=== PATIENT | female | born 1990 | race Caucasian/White ===

== ENCOUNTER 2016-03-10 16:16 | Emergency (ER) | payer MEDICAID ==
[~2016-03-10] VITALS: Ht 157.5 cm; Wt 52.2 kg
[~2016-03-10 16:16] MED LIST: ALPR0.5T7
[2016-03-10 16:59] LABS: Basophils # (auto) 0.1 uL; Basophils % (auto) 0.9 % (0.0-2.0); Eosinophils # (auto) 0.2 uL; Hematocrit 42.8 % (36.0-46.0); Lymphocytes # (auto) 1.5 uL; Lymphocytes % (auto) 20.3 % (10.0-50.0); Mean Corpuscular Hemoglobin 32.9 pg (28.0-32.0); Mean Corpuscular Hgb Conc. 32.7 g/dL (32.0-36.0); Mean Corpuscular Volume 100.6 fL (80.0-100.0); Mean Platelet Volume 8.5 fL (7.4-10.4); Monocytes # (auto) 0.7 uL; Monocytes % (auto) 9.1 % (0.0-12.0); Neutrophils # (auto) 5.1 uL; Neutrophils % (auto) 67.7 % (37.0-80.0); Platelet Count (auto) 338 10^3/uL (140-450); Red Cell Distribution Width 12.9 % (11.6-16.0); White Blood Cell 7.6 10^3/uL (4.4-10.8)
[2016-03-10 17:40] LABS: Albumin 3.9 g/dL (3.4-5.0); BUN/Creatinine Ratio 29.4; Bilirubin, Total 0.3 mg/dL (0.2-1.0); Calcium 9.4 mg/dL (8.5-10.1); Potassium 3.9 mmol/L (3.5-5.1); Total Protein 7.5 g/dL (6.4-8.2)
[2016-03-10 17:45] LABS: Urine Color Brown (Yellow); Urine Glucose Normal (Normal); Urine Ketone Negative (Negative); Urine Mucus FEW (None Seen); Urine RBC 3 /hpf (0 - 4); Urine Squamous Epithelial Cell MANY /hpf (<5)
[2016-03-10] MEDS ORDERED: SODIUM CHLORIDE 0.9% 1,000 ML IVB ONE (18:00)
[2016-03-10] MEDS ORDERED: PROMETHAZINE HCL 25 MG/ML 1ML IV ONE (18:00)
[2016-03-10 18:09] LABS: Urine Bilirubin 1+ (Negative); Urine Blood 2+ /uL (Negative); Urine Nitrite POSITIVE (Negative)
[2016-03-10 23:12] VITALS: BP 98/60
== END 2016-03-10 22:46 | disposition home or self-care (01) ==
LOC: ER 16:21
DX: O21.8 Other vomiting complicating pregnancy (principal); O23.31 Infections of other parts of urinary tract in pregnancy, first trimester; O99.331 Smoking (tobacco) complicating pregnancy, first trimester; F12.10 Cannabis abuse, uncomplicated; Z3A.01 Less than 8 weeks gestation of pregnancy
CPT/HCPCS: 36415; 76801; 80053; 81001; 84702; 85025; 94761; 96374; 99285; J2550; J7030

== ENCOUNTER 2016-06-29 17:27 | Observation (INO) | payer MEDICAID ==
[2016-06-29 18:39] LABS: Urine Bilirubin Negative (Negative); Urine Blood Negative /uL (Negative); Urine Color Yellow (Yellow); Urine Glucose Normal (Normal); Urine Ketone Negative (Negative); Urine Mucus FEW (None Seen); Urine Nitrite Negative (Negative); Urine RBC 1 /hpf (0 - 4); Urine Squamous Epithelial Cell MOD /hpf (<5); Urine Urobilinogen Normal (Negative); Urine pH 6.5 (5.0-8.0)
== END 2016-06-29 18:52 | disposition home or self-care (01) | DRG 566 ==
LOC: LDRP 17:27
PROVIDERS: ADMIT Obstetrics & Gynecology; ATTEND Obstetrics & Gynecology
DX: O36.8120 Decreased fetal movements, second trimester, not applicable or unspecified (principal); Z3A.22 22 weeks gestation of pregnancy
CPT/HCPCS: 59025; 80307; 81001; G0378

== ENCOUNTER 2018-07-30 06:02 | Emergency (ER) | payer SELFPAY ==
[~2018-07-30] VITALS: Ht 160 cm; Wt 59.0 kg
[2018-07-30 06:13] VITALS: BP 139/98
[2018-07-30 07:10] LABS: Urine Bacteria MANY /hpf (None Seen); Urine Blood Negative /uL (Negative); Urine Mucus FEW (None Seen); Urine Specific Gravity 1.029 (1.001-1.035); Urine WBC 4 /hpf (0 - 5)
[2018-07-30] MEDS ORDERED: IBUPROFEN 800 MG TAB PO ONE (08:30)
[2018-07-30 09:01] LABS: Alcohol, Urine < 3.0 mg/dL (0-5); Amphetamine Screen, Urine POSITIVE (NEGATIVE); Barbiturate Scree,Urine NEGATIVE (NEGATIVE); Benzodiazephine Screen, Urine NEGATIVE (NEGATIVE); Cannabinoid Screen, Urine NEGATIVE (NEGATIVE); Cocaine Screen, Urine NEGATIVE (NEGATIVE); Opiate Scree,Urine NEGATIVE (NEGATIVE); Phencyclidine Screen, Urine NEGATIVE (NEGATIVE)
== END 2018-07-30 08:32 | disposition home or self-care (01) ==
LOC: ER 06:02
DX: N39.0 Urinary tract infection, site not specified (principal); F17.210 Nicotine dependence, cigarettes, uncomplicated; F12.10 Cannabis abuse, uncomplicated; F15.10 Other stimulant abuse, uncomplicated
CPT/HCPCS: 80307; 81001; 87086

== ENCOUNTER 2022-04-04 20:05 | Emergency (ER) | payer MEDICAID ==
[~2022-04-04] VITALS: Ht 157.5 cm; Wt 66.7 kg
[2022-04-04] MEDS ORDERED: ACETAMINOPHEN 500 MG TAB PO ONE (21:15)
[2022-04-04 21:16] VITALS: BP 134/77
== END 2022-04-04 22:50 | disposition left against medical advice (07) ==
LOC: ER 20:05
DX: R10.9 Unspecified abdominal pain (principal); Z53.21 Procedure and treatment not carried out due to patient leaving prior to being seen by health care provider

== ENCOUNTER 2024-10-10 23:17 | Inpatient (IN) | payer MEDICAID ==
[~2024-10-10] VITALS: Ht 162.6 cm; Wt 56.4 kg
[2024-10-10 23:25] VITALS: BP 133/88; PULSE 122; RESP 16; TEMP 98.3; O2SAT 94
--- NOTE | 2024-10-10 23:27 | ECG ---
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
[2024-10-10] MEDS ORDERED: SODIUM CHLORIDE 0.9% 1,000 ML IVB ONE (23:30)
--- NOTE | 2024-10-10 23:52 | ED.PDOC ---
Altered Mental Status HPI Comments 34-year-old female who came to ER via EMS for altered level of consciousness. Per EMS, found by family members in her house to be altered and confused. Apparently, patient was not able to attend her daughter's birthday, so they visited her at her house, and they found her acting confused by herself. Upon examination, patient kept repeating, "I am kind of confused". She denies smoking cigarettes, drinking alcohol or taking any drugs. Paramedics states there were cigarettes in in her house, and previous records to be positive for methamphetamines Chief Complaint: ALOC Time Seen by MD: 23:51 Primary Care Provider: DENIED Reviewed Notes: Nurses Notes Allergies: Coded Allergies: NO KNOWN ALLERGIES (Unverified , 03/27/10) Home Meds Reported Medications [Alprazolam0.5 Mg] (Alprazolam) 0.5 MG TAB No Conflict Check, MG 10/20/12 Information Source: Patient Mode of Arrival: EMS Severity: Unable to Care for Self Timing: Hours Duration: Since onset Quality: Decreased Alertness, Change in Behavior, Confusion Past Medical History PAST MEDICAL HISTORY: Pt Confused Surgical History: Pt Confused [employer] History: Pt Confused Family History Family History: Pt Confused Social History Smoker: Pt Confused Alcohol: Pt Confused Drugs: Pt Confused Lives In: Home Unable to Obtain due to: Altered Mental Status Physical Exam General Appearance: No Apparent Distress, Normal HEENT: Normal ENT Inspection, Pharynx Normal, TMs Normal Neck: Full Range of Motion, Non-Tender, Normal, Normal Inspection Respiratory: Chest Non-Tender, Lungs Clear, No Accessory Muscle Use, No Respiratory Distress, Normal Breath Sounds Cardiovascular: No Edema, No JVD, No Murmur, No Gallop, Normal Peripheral Pulses, Regular Rate/Rhythm Breast Exam: Deferred Gastrointestinal: No Organomegaly, Non Tender, No Pulsatile Mass, Normal Bowel Sounds, Soft Genitalia: Deferred Pelvic: Deferred Rectal: Deferred Extremities: No calf tenderness, Normal capillary refill, Normal inspection, Normal range of motion, Non-tender, No pedal edema Musculoskeletal : Apperance: Normal Neurologic: Alert, 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 Was a procedure done?: No Differential Diagnosis (ALOC) Differential Diagnosis: Encephalopathy, Hypoxemia, Seizure, Drug Overdose, ETOH Intoxication X-Ray, Labs, Meds, VS Vital Signs Date Time Temp Pulse Resp B/P (MAP) Pulse Ox O2 Delivery O2 Flow Rate FiO2 10/10/24 23:25 98.3 122 16 133/88 94 98.3 10/10/24 23:23 125 Lab Test 10/10/24 23:37 Range/Units White Blood Count 7.7 4.4-10.8 10^3/uL Red Blood Count 4.18 4.0-5.20 10^6/uL Hemoglobin 15.0 12.2-16.2 g/dL Hematocrit 42.2 36.0-46.0 % Mean Corpuscular Volume 101.1 H 80.0-100.0 fL Mean Corpuscular Hemoglobin 36.0 H 28.0-32.0 pg Mean Corpuscular Hemoglobin Concent 35.6 32.0-36.0 g/dL Red Cell Distribution Width 12.8 11.8-14.3 % Platelet Count 321 140-450 10^3/uL Mean Platelet Volume 8.3 6.9-10.8 fL Neutrophils (%) (Auto) 68.9 37.0-80.0 % Lymphocytes (%) (Auto) 18.2 10.0-50.0 % Monocytes (%) (Auto) 10.2 0.0-12.0 % Eosinophils (%) (Auto) 2.1 0.0-7.0 % Basophils (%) (Auto) 0.6 0.0-2.0 % Neutrophils # (Auto) 5.3 1.6-8.6 10 ^3/uL Lymphocytes # (Auto) 1.4 0.4-5.4 10 ^3/uL Monocytes # (Auto) 0.8 0-1.3 10 ^3/uL Eosinophils # (Auto) 0.2 0-0.8 10 ^3/uL Basophils # (Auto) 0 0-0.2 10 ^3/uL Nucleated Red Blood Cells 0.0 % D-Dimer, Quantitative < 0.19 0.0-0.49 mg/L FEU Sodium Level 140 136-145 mmol/L Potassium Level 4.0 3.5-5.1 mmol/L Chloride Level 108 H 98-107 mmol/L Carbon Dioxide Level 26 20-31 mmol/L Anion Gap 6 5-15 Blood Urea Nitrogen 14 9-23 mg/dL Creatinine 0.83 0.550-1.02 mg/dL Glomerular Filtration Rate Calc 94 >90 mL/min BUN/Creatinine Ratio 16.9 10.0-20.0 Serum Glucose 103 74-106 mg/dL Lactic Acid Level 1.0 0.4-2.0 mmol/L Calcium Level 9.9 8.7-10.4 mg/dL Magnesium Level 2.0 1.6-2.6 mg/dL Total Bilirubin 0.7 0.2-1.0 mg/dL Aspartate Amino Transferase (AST) 20 13-40 U/L Alanine Aminotransferase (ALT) 16 7-40 U/L Alkaline Phosphatase 111 46-116 U/L Total Protein 7.5 5.7-8.2 g/dL Albumin 4.5 3.2-4.8 g/dL Salicylates Level < 3.0 -30 mg/dL Acetaminophen Level < 2.0 L 10.0-20.0 UG/ML Plasma/Serum Blood Alcohol < 3.0 <10 mg/dL Time of 1ST Reevaluation: 23:46 Reevaluation 1ST: Unchanged Patient Education/Counseling: Other (Patient appears confused disoriented) Family Education/Counseling: No Family Present SEPSIS Sepsis Screen Date sepsis recognized/suspect: Oct 10, 2024 Time Sepsis recognized/suspect: 2324 Recent Procedure: No On Antibiotic Therapy: No Respiratory Rate >20: No Heart Rate >90: Yes Temp<36 C (96.8 F) or >38.3 C: No SBP <90 or MAP <65 mmHG: No New Acute Mental Status Change: No Is the patient on CPAP, BIPAP,: No Physician Orders Urinalysis (10/10/24 23:30) Head Without Contrast (10/10/24 23:30) Drug Screen (10/10/24 23:30) Panelboard Operator (10/10/24 23:30) Blood Culture (10/10/24 23:30) Vital Signs Date Time Temp Pulse Resp B/P (MAP) Pulse Ox O2 Delivery O2 Flow Rate FiO2 10/10/24 23:25 98.3 122 16 133/88 94 98.3 10/10/24 23:23 125 Laboratory Tests Test 10/10/24 23:37 Lactic Acid Level 1.0 mmol/L (0.4-2.0) White Blood Count 7.7 10^3/uL (4.4-10.8) Departure 1 Departure Time of Disposition: 00:58 Impression: Primary Impression: Metabolic encephalopathy Disposition: ADMITTED INPATIENT Admit to: Med Surg Condition: Guarded Discharged With: Self Comments 34-year-old female apparently forgot her child birthday libertarian today and when family found hurt her how she was confused. Patient is very alert with vitals stable. Patient answers basic questions appropriately. Patient frequently says "I am feeling really confused right now." Lab work and head CT showed no acute pathology. Patient will be admitted for metabolic encephalopathy. Patient needs supportive care and further workup. Critical Care Note Critical Care Time?: No Stability Stability form required: No Heart Score Heart Score: Heart Score Response (Comments) Value History N/A 0 EKG N/A 0 Age N/A 0 Risk Factors N/A 0 Troponin N/A 0 Total 0 I personally scribed for DANN CISSE MD ([email or web address]) on 10/10/24 at 23:52. Electronically submitted by Ortiz Broussard ([email or web address]). DANN CISSE MD Oct 10, 2024 23:52
[2024-10-11] LABS: Hematocrit 42.2 % (36.0-46.0); Hemoglobin 15.0 g/dL (12.2-16.2); Mean Corpuscular Hemoglobin 36.0 pg (28.0-32.0); Mean Corpuscular Volume 101.1 fL (80.0-100.0); Nucleated Red Blood Cells % 0.0 %
--- NOTE | 2024-10-11 00:14 | DVH ---
CT HEAD WITHOUT CONTRAST INDICATION: ALOC COMPARISON: None TECHNIQUE: CT of the head without intravenous contrast. RADIATION DOSE: CTDIvol: mGy, DLP: mGy*cm FINDINGS: No evidence of intracranial hemorrhage, infarct, extra-axial collection, mass effect, midline shift or herniation. Ventricles, sulci and cisterns are normal with no hydrocephalus. Garduno-white differenti ation is normal. Visualized paranasal sinuses and mastoid air cells are clear. Orbits appear unremarkable. Soft tissue s and osseous structures are unremarkable. IMPRESSION: No intracranial abnormality identified.
[2024-10-11 00:18] LABS: Alanine Aminotransferase 16 U/L (7-40); Albumin 4.5 g/dL (3.2-4.8); Alkaline Phosphatase 111 U/L (46-116); Anion Gap 6 (5-15); BUN/Creatinine Ratio 16.9 (10.0-20.0); Blood Urea Nitrogen 14 mg/dL (9-23); Calcium 9.9 mg/dL (8.7-10.4); Carbon Dioxide 26 mmol/L (20-31); Glucose 103 mg/dL (74-106); Magnesium 2.0 mg/dL (1.6-2.6); Potassium 4.0 mmol/L (3.5-5.1); Sodium 140 mmol/L (136-145); Total Protein 7.5 g/dL (5.7-8.2)
[2024-10-11 00:19] LABS: Bilirubin, Total 0.7 mg/dL (0.2-1.0)
[2024-10-11 00:22] LABS: Acetaminophen < 2.0 UG/ML (10.0-20.0); Salicylate < 3.0 mg/dL (-30)
[2024-10-11 00:23] LABS: Chloride 108 mmol/L (98-107)
[2024-10-11] MEDS ORDERED: NITROGLYCERIN 0.4 MG SL TAB SL PRN (02:00)
[2024-10-11] MEDS ORDERED: ACETAMINOPHEN 325 MG TAB PO PRN (02:00)
[2024-10-11] MEDS ORDERED: MORPHINE SULFATE INJ 2 MG/ml SYRG IV PRN (02:00)
[2024-10-11] MEDS ORDERED: METOCLOPRAMIDE HCL 5MG/ml INJ 2ml VIAL IV PRN (02:00)
[2024-10-11 02:11] LABS: INR 1.02 (0.9-1.15); Partial Thromboplastin Time 27.6 SEC (24.5-34.5); Prothrombin Time 10.8 sec (9.3-11.8)
--- NOTE | 2024-10-14 08:22 | DVHDSRES ---
Discharge Summary Date of Admission Resident Creating Document: VALERIA NEAL RESIDENT Oct 11, 2024 at 01:46 Date of Discharge: Oct 11, 2024 Labs/Diagnostic Data: Laboratory Results Test 10/10/24 23:37 White Blood Count 7.7 10^3/uL (4.4-10.8) Red Blood Count 4.18 10^6/uL (4.0-5.20) Hemoglobin 15.0 g/dL (12.2-16.2) Hematocrit 42.2 % (36.0-46.0) Mean Corpuscular Volume 101.1 fL (80.0-100.0) Mean Corpuscular Hemoglobin 36.0 pg (28.0-32.0) Mean Corpuscular Hemoglobin Concent 35.6 g/dL (32.0-36.0) Red Cell Distribution Width 12.8 % (11.8-14.3) Platelet Count 321 10^3/uL (140-450) Mean Platelet Volume 8.3 fL (6.9-10.8) Neutrophils (%) (Auto) 68.9 % (37.0-80.0) Lymphocytes (%) (Auto) 18.2 % (10.0-50.0) Monocytes (%) (Auto) 10.2 % (0.0-12.0) Eosinophils (%) (Auto) 2.1 % (0.0-7.0) Basophils (%) (Auto) 0.6 % (0.0-2.0) Neutrophils # (Auto) 5.3 10 ^3/uL (1.6-8.6) Lymphocytes # (Auto) 1.4 10 ^3/uL (0.4-5.4) Monocytes # (Auto) 0.8 10 ^3/uL (0-1.3) Eosinophils # (Auto) 0.2 10 ^3/uL (0-0.8) Basophils # (Auto) 0 10 ^3/uL (0-0.2) Nucleated Red Blood Cells 0.0 % Prothrombin Time 10.8 sec (9.3-11.8) Prothrombin Time INR 1.02 (0.9-1.15) Activated Partial Thromboplast Time 27.6 SEC (24.5-34.5) D-Dimer, Quantitative < 0.19 mg/L FEU (0.0-0.49) Sodium Level 140 mmol/L (136-145) Potassium Level 4.0 mmol/L (3.5-5.1) Chloride Level 108 mmol/L (98-107) Carbon Dioxide Level 26 mmol/L (20-31) Anion Gap 6 (5-15) Blood Urea Nitrogen 14 mg/dL (9-23) Creatinine 0.83 mg/dL (0.550-1.02) Glomerular Filtration Rate Calc 94 mL/min (>90) BUN/Creatinine Ratio 16.9 (10.0-20.0) Serum Glucose 103 mg/dL (74-106) Lactic Acid Level 1.0 mmol/L (0.4-2.0) Calcium Level 9.9 mg/dL (8.7-10.4) Magnesium Level 2.0 mg/dL (1.6-2.6) Total Bilirubin 0.7 mg/dL (0.2-1.0) Aspartate Amino Transferase (AST) 20 U/L (13-40) Alanine Aminotransferase (ALT) 16 U/L (7-40) Alkaline Phosphatase 111 U/L (46-116) Ammonia 18 umol/L (11-32) Total Protein 7.5 g/dL (5.7-8.2) Albumin 4.5 g/dL (3.2-4.8) Vitamin B12 Level 528 pg/mL (211-911) Vitamin D 25-Hydroxy 20.0 ng/mL (30.0-100) Thyroid Stimulating Hormone (TSH) 1.49 uIU/mL (0.55-4.78) Beta HCG, Quantitative < 0.0 mIU/mL (1.5-4.2) Salicylates Level < 3.0 mg/dL (-30) Acetaminophen Level < 2.0 UG/ML (10.0-20.0) Plasma/Serum Blood Alcohol < 3.0 mg/dL (<10) Other Laboratory Tests 10/10/24 23:37 Brief Hx & Hospital Course: [place] is a 34 year old with past medical history of polysubstance abuse, who is brought to the ED for ALOC. Obtained HPI from EMR. Per EMS, found by family members in her house to be altered and confused. Apparently, patient was not able to attend her daughter's birthday, so they visited her at her house, and they found her acting confused by herself. Completed head CT which showed no acute intracranial findings, and EKG with no ST elevation. Preliminary laboratory only showed vitamin-D deficiency. Did not complete urine analysis, UDS Patient eloped before formal evaluation, her prognosis is undetermined. DIAGNOSIS Probable toxic encephalopathy in patient with history of polysubstance abuse Ruled out hemorrhagic stroke Ruled out acute coronary syndrome Vitamin-D deficiency Noncompliance Could not determine goals of care of patient Discussed plan with Dr. Bryan Operations or Procedures CT HEAD WITHOUT CONTRAST INDICATION: ALOC COMPARISON: None TECHNIQUE: CT of the head without intravenous contrast. RADIATION DOSE: CTDIvol: mGy, DLP: mGy*cm FINDINGS: No evidence of intracranial hemorrhage, infarct, extra-axial collection, mass effect, midline shift or herniation. Ventricles, sulci and cisterns are normal with no hydrocephalus. Garduno-white differentiation is normal. Visualized paranasal sinuses and mastoid air cells are clear. Orbits appear unremarkable. Soft tissues and osseous structures are unremarkable. IMPRESSION: No intracranial abnormality identified. ATED BY: IVÁN RUIZ MD DICTATED DATE/TIME: 10/11/24 0012 Condition at Discharge: Undetermined Final Diagnosis/Problems List Probable toxic encephalopathy in patient with history of polysubstance abuse Ruled out hemorrhagic stroke Rule out acute coronary syndrome Vitamin-D deficiency Noncompliance Discharge Disposition: Eloped Discharge Instruct/Medications Miscellaneous Medications [Alprazolam0.5 Mg], MG, (Reported) Discharge Statement: "Patient was advised to return to the ER or call 911 if any headaches, dizziness, shortness of breath, chest pain, abdominal pain, bleeding, fevers, or worsening of medical condition. Patient was counseled about treatment plan, medications, possible side effects, patientverbalized understanding. All questions were answered to the best of my ability. This discharge took greater then 30 minutes in planning, reviewing documentation, counseling the patient, and discussing with other team members." ASSESSMENT ASSESSMENT Assessment VALERIA NEAL RESIDENT Oct 14, 2024 08:22
== END 2024-10-11 07:11 | disposition left against medical advice (07) | DRG 52 ==
LOC: EDBD 23:17 → ER 23:17 → OVERFLOW 10-11 01:46
PROVIDERS: ADMIT Student in an Organized Health Care Education/Training Program; ATTEND Emergency Medicine
DX: G92.8 Other toxic encephalopathy (principal); E55.9 Vitamin D deficiency, unspecified; F17.200 Nicotine dependence, unspecified, uncomplicated; Z91.199 Patient's noncompliance with other medical treatment and regimen due to unspecified reason
CPT/HCPCS: 36415; 70450; 80053; 80320; 80329; 82140; 82306; 82607; 83605; 83735; 84443; 84702; 85025; 85379; 85610; 85730; 87040; 93005; G0378